=== PATIENT | female | born 1990 | race Caucasian/White ===

== ENCOUNTER 2018-10-31 18:41 | Emergency (ER) | payer MEDICAID ==
[~2018-10-31] VITALS: Ht 180.3 cm; Wt 80.0 kg
[~2018-10-31 18:41] MED LIST: HYDR-3965 PO; HYDR-4353 PO; ONDA4TAB6 PO
[2018-10-31 19:01] VITALS: BP 132/82
[2018-10-31] MEDS ORDERED: clonazePAM 0.5mg tablet PO ONE (20:15)
[2018-10-31] MEDS ORDERED: NAPR-56 PO (20:16)
[2018-10-31] MEDS ORDERED: CEPH-571 PO (20:16)
== END 2018-10-31 20:35 | disposition home or self-care (01) ==
LOC: ER 18:42
DX: K02.9 Dental caries, unspecified (principal); K08.409 Partial loss of teeth, unspecified cause, unspecified class; Z88.0 Allergy status to penicillin; Z88.6 Allergy status to analgesic agent
CPT/HCPCS: 99283

== ENCOUNTER 2019-05-30 22:38 | Emergency (ER) | payer MEDICAID ==
[~2019-05-30] VITALS: Ht 180.3 cm; Wt 87.0 kg
[~2019-05-30 22:38] MED LIST changes: +CEPH-571 PO; -HYDR-3965 PO; -HYDR-4353 PO
[2019-05-30 22:39] VITALS: BP 125/73
[2019-05-30 23:02] LABS: URINE HCG NEGATIVE (NEG)
[2019-05-30 23:05] LABS: CLARITY,URINE CLOUDY (Clear); COLOR,URINE DARK YELLOW (Yellow); GLUCOSE, URINE NEGATIVE (Neg); KETONES,URINE TRACE mg/dl (Neg); LEUKOCYTE ESTERASE ,URINE MODERATE (Neg); OCCULT BLOOD,URINE MODERATE (Neg); PH,URINE 5.5 (4.8-8.0); PROTEIN,URINE 100 mg/dl (Neg)
[2019-05-30 23:06] LABS: NITRITES, URINE NEGATIVE (Neg)
[2019-05-30 23:12] LABS: BACTERIA,URINE 2+ /HPF (Neg); RBC,URINE NONE SEEN /HPF (0-2); WBC,URINE 20-30 /HPF (0-4)
[2019-05-30 23:13] LABS: SQUAMOUS EPITHELIAL CELL,UR MODERATE /LPF (FEW)
[2019-05-30 23:23] LABS: UA COLLECTION TYPE CLN CATCH MIDSTREAM
[2019-05-30] MEDS ORDERED: ONDA4TAB6 PO (23:54)
[2019-05-30] MEDS ORDERED: CEPH-571 PO (23:54)
== END 2019-05-31 00:05 | disposition home or self-care (01) ==
LOC: ER 22:38
DX: N39.0 Urinary tract infection, site not specified (principal); J45.909 Unspecified asthma, uncomplicated; Z88.5 Allergy status to narcotic agent; Z88.8 Allergy status to other drugs, medicaments and biological substances; Z79.2 Long term (current) use of antibiotics; Z79.899 Other long term (current) drug therapy
CPT/HCPCS: 81001; 81025; 87077; 87088; 87186; 99283

== ENCOUNTER 2019-07-05 21:05 | Emergency (ER) | payer MEDICAID ==
[~2019-07-05] VITALS: Ht 180.3 cm; Wt 81.8 kg
[2019-07-05 21:06] VITALS: BP 126/87
[2019-07-05] MEDS ORDERED: AZIT-72 PO (23:20)
[2019-07-05] MEDS ORDERED: TRAM50TA2 PO (23:20)
[2019-07-05] MEDS ORDERED: FLUC150T PO (23:26)
== END 2019-07-05 23:33 | disposition home or self-care (01) ==
LOC: ER 21:05
DX: M54.6 Pain in thoracic spine (principal); J20.9 Acute bronchitis, unspecified; J45.909 Unspecified asthma, uncomplicated; Z88.5 Allergy status to narcotic agent; Z91.018 Allergy to other foods; Z79.899 Other long term (current) drug therapy; W18.39XA Other fall on same level, initial encounter; Y93.89 Activity, other specified; Y92.89 Other specified places as the place of occurrence of the external cause; Y99.8 Other external cause status
CPT/HCPCS: 99284

== ENCOUNTER 2020-07-23 04:19 | Emergency (ER) | payer MEDICAID ==
[~2020-07-23] VITALS: Ht 180.3 cm; Wt 90.6 kg
[2020-07-23 04:29] VITALS: BP 150/90
[2020-07-23] MEDS ORDERED: ketorolac trometh. 30mg/ml inj. IM ONE (05:05)
[2020-07-23] MEDS ORDERED: CYCL-1 PO (05:07)
[2020-07-23] MEDS ORDERED: NAPR-56 PO (05:07)
== END 2020-07-23 05:28 | disposition home or self-care (01) ==
LOC: ER 04:20
DX: S39.012A Strain of muscle, fascia and tendon of lower back, initial encounter (principal); M79.604 Pain in right leg; J45.909 Unspecified asthma, uncomplicated; Z87.440 Personal history of urinary (tract) infections; Z98.890 Other specified postprocedural states; Z88.5 Allergy status to narcotic agent; Z88.8 Allergy status to other drugs, medicaments and biological substances; Z79.2 Long term (current) use of antibiotics; Z79.899 Other long term (current) drug therapy; X58.XXXA Exposure to other specified factors, initial encounter; Y93.89 Activity, other specified; Y92.89 Other specified places as the place of occurrence of the external cause; Y99.8 Other external cause status
CPT/HCPCS: 73610; 96372; 99283; J1885

== ENCOUNTER 2021-09-05 14:54 | Emergency (ER) | payer MEDICAID ==
[~2021-09-05] VITALS: Ht 180.3 cm; Wt 113.0 kg
[~2021-09-05 14:54] MED LIST changes: +CYCL-1 PO
[2021-09-05 16:24] VITALS: BP 119/70
[2021-09-05 18:22] LABS: BASOPHILS % (AUTO) 0.6 % (0-1); EOSINOPHILS # (AUTO) 0.4 X10'3 (0-0.9); EOSINOPHILS % (AUTO) 5.1 % (0-6); HEMOGLOBIN 12.6 g/dl (12.0-16.0); LYMPHOCYTES # (AUTO) 2.5 X10'3 (1.1-4.8); LYMPHOCYTES % (AUTO) 32.5 % (21-51); MEAN CORPUSCULAR HEMOGLOBIN 30.5 PG (27.0-31.0); MEAN CORPUSCULAR HGB CONC 34.1 g/dL (33.0-36.5); MEAN CORPUSCULAR VOLUME 89.5 FL (78-98); MEAN PLATELET VOLUME 7.3 FL (7.4-10.4); MONOCYTES # (AUTO) 0.6 X10'3 (0-0.9); MONOCYTES % (AUTO) 8.1 % (2-12); NEUTROPHILS # (AUTO) 4.1 X10'3 (1.8-7.7); NEUTROPHILS % (AUTO) 53.7 % (42-75); PLATELET COUNT 332 X10'3 (140-440); RED BLOOD COUNT 4.14 X10'6 (4.20-5.60); RED CELL DISTRIBUTION WIDTH 13.4 % (11.5-14.5); WHITE BLOOD COUNT 7.6 X10'3 (4.5-11.0)
[2021-09-05 18:37] LABS: ALANINE AMINOTRANSFERASE 37 U/L (12-78); ALBUMIN 3.7 G/DL (3.4-5.0); ALBUMIN/GLOBULIN RATIO 0.9 (1.1-1.5); ALKALINE PHOSPHATASE 74 IU/L (46-116); ANION GAP 6 (8-16); ASPARTATE AMINO TRANSFERASE 29 U/L (10-37); BILIRUBIN,TOTAL 0.1 MG/DL (0.1-1.0); BLOOD UREA NITROGEN 9 MG/DL (7-18); BUN/CREATININE RATIO 12.3 (6.6-38.0); CALCIUM 9.2 MG/DL (8.5-10.1); CHLORIDE 101 MMOL/L (99-107); CREATININE 0.73 MG/DL (0.40-0.90); GLUCOSE 95 MG/DL (70-104); POTASSIUM 3.9 MMOL/L (3.5-5.1); SODIUM 139 MMOL/L (135-145); TOTAL CARBON DIOXIDE 31.7 MMOL/L (24-32); TOTAL PROTEIN 7.6 G/DL (6.4-8.2); eGFR > 90 ML/MIN
== END 2021-09-05 19:18 | disposition home or self-care (01) ==
LOC: ER 14:55
DX: H92.02 Otalgia, left ear (principal); J45.909 Unspecified asthma, uncomplicated; Z87.448 Personal history of other diseases of urinary system
CPT/HCPCS: 36415; 70140; 80053; 85025; 99284

== ENCOUNTER 2024-06-25 05:32 | Emergency (ER) | payer MEDICAID, OTHER ==
[~2024-06-25] VITALS: Ht 172.7 cm; Wt 75.0 kg
[2024-06-25 06:53] VITALS: BP 118/63; PULSE 57; RESP 12; TEMP 98.1; O2SAT 97
== END 2024-06-25 07:01 | disposition home or self-care (01) ==
LOC: ER 05:32
DX: Z00.00 Encounter for general adult medical examination without abnormal findings (principal); J45.909 Unspecified asthma, uncomplicated; Z88.5 Allergy status to narcotic agent; Z88.8 Allergy status to other drugs, medicaments and biological substances; Z87.440 Personal history of urinary (tract) infections
CPT/HCPCS: 99284

== ENCOUNTER 2024-08-18 02:19 | Emergency (ER) | payer MEDICAID, OTHER ==
[~2024-08-18] VITALS: Ht 172.7 cm; Wt 100.7 kg
[2024-08-18 02:28] VITALS: BP 105/67; PULSE 93; RESP 16; TEMP 97.9; O2SAT 100
[2024-08-18] MEDS ORDERED: ALBU8HFA INH (02:44)
[2024-08-18] MEDS ORDERED: AZIT-164 PO (02:44)
[2024-08-18] MEDS: azithromycin 250mg tablet PO ONE (02:46)
== END 2024-08-18 02:51 | disposition home or self-care (01) ==
LOC: ER 02:20
DX: J20.9 Acute bronchitis, unspecified (principal); J45.909 Unspecified asthma, uncomplicated; Z88.0 Allergy status to penicillin; Z88.5 Allergy status to narcotic agent; Z88.8 Allergy status to other drugs, medicaments and biological substances; Z87.440 Personal history of urinary (tract) infections; Z59.00 Homelessness unspecified
CPT/HCPCS: 99283